=== PATIENT | female | born 1970 | race Caucasian/White ===

== ENCOUNTER → 2017-01-18 | Outpatient (CLI) | payer BC | LOC: MC.RAD 08:17 | DX: Z12.31 Encounter for screening mammogram for malignant neoplasm of breast (principal) ==

== ENCOUNTER → 2018-03-10 | Outpatient (CLI) | payer BC | LOC: MC.RAD 02-17 09:00 | DX: Z12.31 Encounter for screening mammogram for malignant neoplasm of breast (principal) ==